=== PATIENT | female | born 1955 | race Caucasian/White ===

== ENCOUNTER → 2021-10-05 | Outpatient (CLI) | payer OTHER | LOC: EXRD 15:24 | DX: I65.23 Occlusion and stenosis of bilateral carotid arteries (principal) | CPT/HCPCS: 93880 ==

== ENCOUNTER → 2021-11-01 | Outpatient (CLI) | payer OTHER | LOC: EXRD 14:15 | DX: E04.1 Nontoxic single thyroid nodule (principal) | CPT/HCPCS: 76536 ==

== ENCOUNTER → 2022-01-19 | Outpatient (CLI) | payer OTHER | LOC: ECHO 08:30 | DX: Z01.810 Encounter for preprocedural cardiovascular examination (principal); I45.10 Unspecified right bundle-branch block; I08.0 Rheumatic disorders of both mitral and aortic valves | CPT/HCPCS: ECHO; 93306 ==

== ENCOUNTER → 2022-01-20 | Outpatient (CLI) | payer OTHER | LOC: HEART 5 09:10 | DX: Z01.810 Encounter for preprocedural cardiovascular examination (principal); I45.10 Unspecified right bundle-branch block | CPT/HCPCS: 78452; A9502; J2785 ==

== ENCOUNTER → 2022-02-06 | Outpatient (CLI) | payer OTHER | LOC: LAB 14:12 | DX: Z20.822 Contact with and (suspected) exposure to COVID-19 (principal) | CPT/HCPCS: U0002 ==